=== PATIENT | male | born 1985 | race African-American/Black ===

== ENCOUNTER 2018-07-10 11:00 | Emergency (ER) | payer OTHER, SELFPAY ==
[2018-07-10] MEDS ORDERED: Azithromycin 250 MG TAB ONE (12:18)
[2018-07-10] MEDS ORDERED: Lidocaine 1% PF 5 ML VIAL ONE (12:18)
[2018-07-10] MEDS ORDERED: cefTRIAXone\\ROCEPHIN 250 MG VIAL ONE (12:18)
[2018-07-11 20:35] LABS: Chlamydia by PCR DETECTED (NotDetected); GC by PCR DETECTED (NotDetected)
== END 2018-07-10 12:45 | disposition home or self-care (01) ==
LOC: ERS 11:00
DX: N34.2 Other urethritis (principal); F17.210 Nicotine dependence, cigarettes, uncomplicated
CPT/HCPCS: 87491; 87591; 96372; J0696; J2001